=== PATIENT | male | born 1975 | race Caucasian/White ===

== ENCOUNTER 2018-03-15 11:23 | Emergency (ER) | payer MEDICAID ==
[~2018-03-15] VITALS: Ht 185.4 cm; Wt 99.5 kg
[~2018-03-15 11:23] MED LIST: ALPR1TAB2 PO; DISU250T7 PO; OMEP40CA37 PO
[2018-03-15 11:57] VITALS: BP 133/89
== END 2018-03-15 12:59 | disposition home or self-care (01) ==
LOC: ER 11:23
DX: F10.29 Alcohol dependence with unspecified alcohol-induced disorder (principal); Z02.9 Encounter for administrative examinations, unspecified; F17.200 Nicotine dependence, unspecified, uncomplicated; Z79.899 Other long term (current) drug therapy
CPT/HCPCS: 99281

== ENCOUNTER 2021-09-30 22:02 | Emergency (ER) | payer MEDICAID ==
[~2021-09-30] VITALS: Ht 188 cm; Wt 104.5 kg
[~2021-09-30 22:02] MED LIST changes: +OMEP40CA21 PO; -OMEP40CA37 PO
== END 2021-09-30 22:24 ==
LOC: ER 22:02
DX: S41.102A Unspecified open wound of left upper arm, initial encounter (principal); F10.920 Alcohol use, unspecified with intoxication, uncomplicated; Z02.89 Encounter for other administrative examinations; X58.XXXA Exposure to other specified factors, initial encounter; Y93.89 Activity, other specified; Y92.89 Other specified places as the place of occurrence of the external cause; Y99.8 Other external cause status; Y90.9 Presence of alcohol in blood, level not specified
CPT/HCPCS: 99283

== ENCOUNTER 2025-07-08 20:09 | Emergency (ER) | payer MEDICAID, OTHER ==
[~2025-07-08] VITALS: Ht 182.9 cm; Wt 120.5 kg
[~2025-07-08 20:09] MED LIST changes: +DISU250T15 PO; -DISU250T7 PO
[2025-07-08 20:15] VITALS: BP 145/9; PULSE 93; RESP 16; O2SAT 97
[2025-07-08] MEDS: bacitracin 15gm ointment TP ONE (20:38)
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
[2025-07-08 20:48] VITALS: TEMP 98.4
== END 2025-07-08 21:12 | disposition home or self-care (01) ==
LOC: ER 20:10
DX: S80.811A Abrasion, right lower leg, initial encounter (principal); K21.9 Gastro-esophageal reflux disease without esophagitis; F10.10 Alcohol abuse, uncomplicated; Z79.899 Other long term (current) drug therapy; V89.2XXA Person injured in unspecified motor-vehicle accident, traffic, initial encounter; Y93.89 Activity, other specified; Y92.89 Other specified places as the place of occurrence of the external cause; Y99.8 Other external cause status; Y90.9 Presence of alcohol in blood, level not specified
CPT/HCPCS: 99283; A6258; A6446

== ENCOUNTER 2025-11-03 18:35 | Emergency (ER) | payer MEDICAID, OTHER ==
[~2025-11-03] VITALS: Ht 188 cm; Wt 150.0 kg
[2025-11-03 18:45] VITALS: BP 168/102; PULSE 104; RESP 20; O2SAT 97
[2025-11-03] MEDS ORDERED: LORA-269 PO (19:36)
[2025-11-03] MEDS ORDERED: ONDA-243 PO (19:36)
--- NOTE | 2025-11-03 19:36 | Physician Documentation ---
History of Present Illness ~ Chief Complaint: Medical Clearance Stated Complaint: MED CLEARANCE Time Seen by MD: 18:57 Primary Medical Doctor: Leland ANDUJAR Very pleasant 49-year-old male that presents to the emergency room for evaluation of medical clearance so that he can present to the [facility]. Patient reports that the [facility] have requested that he have a prescription for Ativan to assist him in the alcohol withdrawal and Zofran to help with his nausea. Patient's is here with him she reports that she will help him obtain the medications take him to [place] in ensure that the medications are provided appropriately best of her ability. Patient reports that he drinks approximately a gal of alcohol a day. Patient reports that he has been drinking approximately a gal of alcohol daily for the last couple of months. Patient reports he last drank approximately 20 minutes ago. Patient reports he needs to check into the [facility] by 9:45 p.m. shannan. Tetanus within 5 years?: No Medication Reconciliation Allergies: Coded Allergies: No Known Allergies (Unverified , 10/31/12) Scheduled Alprazolam (Xanax), 0.5-1 TABLET PO BID Disulfiram (Disulfiram), 250 MG PO DAILY Omeprazole (Prilosec), 1 CAP PO DAILY Past Medical History Past Medical History: GERD, Hepatitis C Past Surgical History: noncontributory Alcohol Use: Abuse Drug Use: none Lives with: S/O Review of Systems ROS As stated above in the HPI, otherwise all systems are reviewed and negative. Physical Exam Vital Signs: Temperature: 98.0, Heart Rate: 104, Respiratory Rate: 20, BP: 168/102, Pulse Oximetry: 97, Weight: 150.000 Oxygen Flow Rate: 0 Physical Exam VITALS: Reviewed and as above. GENERAL: Alert, no apparent distress. HEENT: Normocephalic, atraumatic, PERRL, EOMI, dry mucosa, no erythema RESPIRATORY: Lungs clear, normal breath sounds, no respiratory distress. CHEST: No accessory muscle use, no retractions CV: Regular rate, rhythm, no edema, no murmur, No: JVD GI: Soft, non-tender, bowels sounds present, no rebound, guarding, or rigidity BACK: No CVA tenderness, or swelling MUSCULOSKELETAL No deformities, no edema SKIN: Warm and dry, no rash NEURO: Oriented x4, No motor or sensory deficit PSYCH: Normal mood and affect, no agitation Progress Results/Orders Results/Orders Vital Signs 11/03/25 18:45 Temp 98.0 Pulse 104 Resp 20 B/P (MAP) 168/102 Pulse Ox 97 O2 Flow Rate 0 Medical Decision Making Additional information obtaine: other Findings Very pleasant 49-year-old male that presents to the emergency room for evaluation of medical clearance so that he can present to the [facility]. Patient reports that the [facility] have requested that he have a prescription for Ativan to assist him in the alcohol withdrawal and Zofran to help with his nausea. Patient's is here with him she reports that she will help him obtain the medications take him to [place] in ensure that the medications are provided appropriately best of her ability. Patient reports that he drinks approximately a gal of alcohol a day. Patient reports that he has been drinking approximately a gal of alcohol daily for the last couple of months. Patient reports he last drank approximately 20 minutes ago. Patient reports he needs to check into the [facility] by 9[facility]. Differential Dx:Considerations: Include: Intoxication-Alcohol, Intoxication- Other drug, Personality disorder, Substance abuse disorder, Acute delirium, Closed head injury, Cervical spine injury, Skull fracture, Fracture(s), Abrasion, Contusion, Foreign body, Hematoma, Laceration, Alcohol withdrawl syndrom, Encephalopathy, Hepatitis, Medically stable, Other Departure Disposition: 01 HOME / SELF CARE / HOMELESS Impression: Primary Impression: General medical exam Additional Impressions: Alcohol intoxication Alcohol withdrawal syndrome Condition: Stable Discharge Instructions: Alcohol Withdrawal Syndrome, Medical Screening Exam Additional Instructions: Very pleasant 49-year-old male that presents to the emergency room for evaluation of medical clearance so that he can present to the [facility]. Patient reports that the [facility] have requested that he have a prescription for Ativan to assist him in the alcohol withdrawal and Zofran to help with his nausea. Patient's is here with him she reports that she will help him obtain the medications take him to [place] in ensure that the medications are provided appropriately best of her ability. Patient reports that he drinks approximately a gal of alcohol a day. Patient reports that he has been drinking approximately a gal of alcohol daily for the last couple of months. Patient reports he last drank approximately 20 minutes ago. Patient reports he needs to check into the [facility] by 9:45 p.m. shannan. Please take your Ativan as prescribed do not take Ativan while drinking, driving operating equipment or combined with any other medications that may make you tired. You will be prescribed Zofran to help with your nausea during your withdrawal. Patient has been evaluated thoroughly here in the emergency department. This patient is medically cleared to present to the [facility] upon discharge. Referrals: NO PRIMARY CARE PROVIDER (PCP) Prescriptions ONDANSETRON ODT 4mg tablet (ONDANSETRON ODT) 4 Mg Tab.rapdis 4 MG PO Q6H for 7 Days, #28 TAB Prov: REGLA BOURNE 11/03/25 Lorazepam (Ativan) 1 Mg Tablet 1 TAB PO Q12H PRN PRN for anxiety for 7 Days, #14 TAB 0 Refills Prov: REGLA BOURNE 11/03/25 Education Educated: Patient Educated regarding: diagnosis, treatment, need for follow up Signature Scribe Signature: A Attestation: Scribed for Regla Bourne by SELVIN Soriano . 11/03/25 19:37 REGLA BOURNE Nov 03, 2025 19:36
[2025-11-03 19:39] VITALS: TEMP 98
== END 2025-11-03 19:45 | disposition home or self-care (01) ==
LOC: ER 18:35
DX: Z00.00 Encounter for general adult medical examination without abnormal findings (principal); F10.229 Alcohol dependence with intoxication, unspecified; F10.239 Alcohol dependence with withdrawal, unspecified; K21.9 Gastro-esophageal reflux disease without esophagitis; Y90.9 Presence of alcohol in blood, level not specified
CPT/HCPCS: 99283

== ENCOUNTER 2025-11-20 10:58 | Emergency (ER) | payer MEDICAID ==
[~2025-11-20] VITALS: Ht 185.4 cm; Wt 153.6 kg
[~2025-11-20 10:58] MED LIST changes: +LORA-269 PO; +ONDA-243 PO
[2025-11-20 11:07] VITALS: BP 155/94; PULSE 96; RESP 16; TEMP 98.5; O2SAT 95
[2025-11-20] MEDS ORDERED: ONDA-243 PO (11:40)
[2025-11-20] MEDS ORDERED: LORA-269 PO (11:40)
[2025-11-20] MEDS ORDERED: OMEP40CA21 PO (11:40)
--- NOTE | 2025-11-20 11:42 | Physician Documentation ---
History of Present Illness ~ Chief Complaint: Medical Clearance Stated Complaint: DETOX Time Seen by MD: 11:22 Primary Medical Doctor: Ramónk Source: patient Mode of Arrival: POV Exam Limitations: no limitations HPI 50-year-old male with history of alcohol abuse is going into a program in [facility] needs medical clearance and medications to go through withdrawal. Last drink 10 minutes ago. Patient is here with his Tetanus within 5 years?: No Medication Reconciliation Allergies: Coded Allergies: No Known Allergies (Unverified , 11/20/25) Scheduled Alprazolam (Xanax), 0.5-1 TABLET PO BID Disulfiram (Disulfiram), 250 MG PO DAILY ONDANSETRON ODT 4mg tablet (Ondansetron Odt), 4 MG PO Q6H Omeprazole (Prilosec), 1 CAP PO DAILY Scheduled PRN Lorazepam (Ativan), 1 TAB PO Q12H PRN PRN for anxiety Past Medical History Past Medical History: GERD, Hepatitis C Past Surgical History: noncontributory Alcohol Use: Abuse Drug Use: none Lives with: S/O Review of Systems All Other Systems at this time: Reviewed and Negative Physical Exam Vital Signs: RN Vital Signs have been reviewed: Yes, Temperature: 98.5, Source: Temporal, Heart Rate: 96, Respiratory Rate: 16, BP: 155/94, Pulse Oximetry: 95, Weight: 153.600 Oxygen Flow Rate: 0 Physical Exam General: Alert, no apparent distress. HEENT: PERRL, EOMI, no injection, moist mucous membranes. Neck: Full range of motion. Respiratory: Lungs clear, no respiratory distress. Chest: No accessory muscle use. Cardiovascular: Regular rate and rhythm, no murmurs. Extremities: Normal range of motion, no deformity. Neurologic: Oriented x4. Psychiatric: Normal mood and affect. Skin: Normal color, warm and dry. No edema, no ecchymosis. Progress Results/Orders Results/Orders Vital Signs 11/20/25 11:07 Temp 98.5 Pulse 96 Resp 16 B/P (MAP) 155/94 Pulse Ox 95 O2 Flow Rate 0 Medical Decision Making Additional information obtaine: old records Findings We will provide Ativan omeprazole and Zofran for alcohol withdrawal and medical clearance to go into a 30 day residential facility in [facility] tomorrow Differential Dx:Considerations: Include: Intoxication-Alcohol, Substance abuse disorder, Alcohol withdrawl syndrom Departure Time of Disposition: 11:38 Disposition: 01 HOME / SELF CARE / HOMELESS Impression: Primary Impression: Medical clearance for incarceration Additional Impression: Alcohol intoxication Condition: Stable Discharge Instructions: Medical Screening Exam Additional Instructions: Patient is medically cleared for residential rehab. Medications for alcohol withdrawal Referrals: NO PRIMARY CARE PROVIDER (PCP) Prescriptions Omeprazole (Prilosec) 40 Mg Capsule 1 CAP PO DAILY for 30 Days, #30 CAP Prov: LISHA SOLO NP 11/20/25 ONDANSETRON ODT 4mg tablet (ONDANSETRON ODT) 4 Mg Tab.rapdis 1 TABLET PO Q6H PRN for nausea/vomiting, #16 TABLET Prov: LISHA SOLO NP 11/20/25 Lorazepam (Ativan) 1 Mg Tablet 1 TAB PO Q8H for anxiety for 5 Days, #15 TAB 0 Refills Prov: LISHA SOLO NP 11/20/25 Education Educated: Patient, Family Educated regarding: diagnosis, treatment, need for follow up Signature Scribe Signature: No scribe Attestation: The note accurately reflects work and decisions made by me.Lisha MONTALVO 11/20/25 11:45 LISHA SOLO NP Nov 20, 2025 11:42
== END 2025-11-20 12:20 | disposition home or self-care (01) ==
LOC: ER 10:59
DX: Z02.89 Encounter for other administrative examinations (principal); F10.129 Alcohol abuse with intoxication, unspecified; K21.9 Gastro-esophageal reflux disease without esophagitis; Z86.19 Personal history of other infectious and parasitic diseases; Y90.9 Presence of alcohol in blood, level not specified; Z79.899 Other long term (current) drug therapy
CPT/HCPCS: 99283